=== PATIENT | male | born 1960 | race Caucasian/White ===

== ENCOUNTER 2025-02-04 19:05 | Inpatient (IN) | payer MEDICAID, OTHER ==
[~2025-02-04] VITALS: Ht 180.3 cm; Wt 93.4 kg
[2025-02-04] MEDS ORDERED: BACITRACIN ZINC OINT PACKET 1 EA PACKET TP ONE (19:57)
[2025-02-04] MEDS: BACITRACIN ZINC OINT PACKET 1 EA PACKET TP ONE (19:57)
[2025-02-04] MEDS ORDERED: MUPI22OI2 TP (20:03)
[2025-02-04 20:48] LABS: PLATELET COUNT (AUTO) 244 K/uL (150-450); RED BLOOD CELL COUNT(AUTO) 4.06 MIL/uL (4.5-6.0); RED CELL DISTRIBUTION WIDTH 15.5 % (11.5-15.0); WHITE BLOOD COUNT (AUTO) 7.7 K/uL (4.3-11.0)
[2025-02-04 20:55] LABS: CALCIUM, SERUM 8.9 mg/dL (8.5-10.1); CREATININE 0.9 mg/dL (0.6-1.3); SODIUM SERUM 136 mmol/L (136-145); UREA NITROGEN, BLOOD 16 mg/dL (7-18)
[2025-02-04 21:02] LABS: ASPARTATE AMINOTRANSFERASE 10 U/L (15-37); TOTAL PROTEIN, SERUM 8.1 g/dL (6.4-8.2)
[2025-02-04] MEDS ORDERED: ACETAMINOPHEN 325 MG TABLET PO PRN (22:30)
[2025-02-04] MEDS ORDERED: MAG HYDROX/AL HYDROX/SIMETH 30 ML UDC PO PRN (22:30)
[2025-02-05] VITALS: BP 115/84; TEMP 98.2; O2SAT 96
[2025-02-05 07:05] LABS: PLATELET COUNT (AUTO) 239 K/uL (150-450); RED BLOOD CELL COUNT(AUTO) 4.15 MIL/uL (4.5-6.0); RED CELL DISTRIBUTION WIDTH 15.4 % (11.5-15.0); WHITE BLOOD COUNT (AUTO) 7.2 K/uL (4.3-11.0)
[2025-02-05 07:21] LABS: CALCIUM, SERUM 9.0 mg/dL (8.5-10.1); CREATININE 0.8 mg/dL (0.6-1.3); PHOSPHORUS 3.9 mg/dL (2.5-4.9); SODIUM SERUM 137.0 mmol/L (136-145); UREA NITROGEN, BLOOD 13.0 mg/dL (7-18)
[2025-02-05 08:00] VITALS: BP 122/94; TEMP 98; O2SAT 95
[2025-02-05 16:00] VITALS: BP 132/80; TEMP 98.3; O2SAT 96
[2025-02-05] MEDS: HYDROCODONE/APAP 10/325MG TABLET PO PRN (18:54)
[2025-02-06 00:30] VITALS: BP 127/98; TEMP 98.4; O2SAT 95
[2025-02-06 08:00] VITALS: BP 149/100; TEMP 98.2; O2SAT 94
[2025-02-06] MEDS: IBUPROFEN 400 MG TABLET PO PRN (10:22)
[2025-02-06 16:00] VITALS: BP 127/91; TEMP 97.2; O2SAT 98
[2025-02-06 20:00] VITALS: BP 121/88; TEMP 97.5
[2025-02-07 08:00] VITALS: BP 124/84; TEMP 97.8; O2SAT 96
[2025-02-07] MEDS ORDERED: MUPIROCIN OINT 2% 22 GM TUBE TP SCH (09:00)
[2025-02-07] MEDS: MUPIROCIN OINT 2% 22 GM TUBE TP SCH (13:02)
[2025-02-07] MEDS: ONDANSETRON HCL/PF 4 MG/2 ML VIAL IVP PRN (15:38)
[2025-02-07 16:00] VITALS: BP 143/93; TEMP 97.8; O2SAT 100
[2025-02-07] MEDS: HYDROCODONE/APAP 10/325MG TABLET PO ONE (17:14)
[2025-02-07 20:00] VITALS: BP 119/74; TEMP 97.6; O2SAT 98
[2025-02-08 04:00] VITALS: BP_SYST 111; BP_SYST 120; BP_DIAS 57; BP_DIAS 84; TEMP 98.2; TEMP 98.8; O2SAT 97; O2SAT 98
[2025-02-08] MEDS ORDERED: LIDOCAINE 5% OINT 35.44 GM TUBE TP PRN (10:00)
[2025-02-08] MEDS ORDERED: IV NS 0.9% 250 ML IV ONE (10:30)
[2025-02-08] MEDS ORDERED: CT SWABBABLE VALVE TRANS SET 1 EA INFUS.SET MC ONE (10:30)
[2025-02-08] MEDS ORDERED: IOHEXOL-300 100 ML VIAL IV ONE (10:30)
[2025-02-08 12:00] VITALS: BP 120/84; TEMP 98.2; O2SAT 97
[2025-02-08] MEDS: LIDOCAINE 2%-EPI 1:100,000 30 ML VIAL IJ ONE (14:07)
[2025-02-08] MEDS: SILVER NITRATE APPLICATOR 1 EA BOX MC ONE (14:07)
[2025-02-08] MEDS ORDERED: LIDO35.4 TP (15:54)
[2025-02-08] MEDS ORDERED: MUPI22OI7 TP (15:54)
== END 2025-02-08 18:09 | disposition left against medical advice (07) | DRG 385 ==
LOC: ER 19:09 → MEDSG1 22:09
PROVIDERS: ADMIT Nurse Practitioner Acute Care; ATTEND Nurse Practitioner Acute Care
PROC: 0HB5XZX Excision of Chest Skin, External Approach, Diagnostic (ICD-10-PCS; principal; 2025-02-08)
DX: C44.519 Basal cell carcinoma of skin of other part of trunk (principal); I11.0 Hypertensive heart disease with heart failure; D68.59 Other primary thrombophilia; I50.32 Chronic diastolic (congestive) heart failure; D64.9 Anemia, unspecified; F20.9 Schizophrenia, unspecified; I48.0 Paroxysmal atrial fibrillation; R53.1 Weakness; Z53.29 Procedure and treatment not carried out because of patient's decision for other reasons; L98.8 Other specified disorders of the skin and subcutaneous tissue
CPT/HCPCS: 36415; 71260-TC; 80048-TC; 80076-TC; 83735-TC; 84100-TC; 84484-TC; 85025-TC; 87081-TC; 88305-TC; A6253; A6254; A6403; G0378; J2405; J3490; J7050; Q9967